=== PATIENT | male | born 1945 | race Two or more races ===

== ENCOUNTER 2017-05-13 09:05 | Inpatient (IN) | payer MEDICARE, BC, OTHER ==
[2017-05-13] MEDS: ASPIRIN 81 MG TAB PO (09:30)
[2017-05-13 09:59] LABS: ADD MAN DIFF? NO
[2017-05-13] MEDS ORDERED: ONDANSETRON 4 MG INJ ×2 (10:02→11:16)
[2017-05-13] MEDS: AMIODARONE 900 MG in DEXTROSE 5% 482 ML IV (10:09)
[2017-05-13] MEDS: HEPARIN 1000 UNITS/ML 10 ML INJ IV (10:09)
[2017-05-13 10:12] LABS: WHITE BLOOD COUNT 6.5 10^3/ul (4.8-10.8)
[2017-05-13 10:12] LABS: BASOPHILS % 0.5 % (0.0-2.0); EOSINOPHILS # 0.2 10^3/ul (0.0-0.5); EOSINOPHILS % 3.7 % (0.0-7.0); HEMATOCRIT 42.7 % (42.0-52.0); HEMOGLOBIN 14.4 g/dl (14.0-18.0); LYMPHOCYTES # 1.9 10^3/ul (0.8-2.9); LYMPHOCYTES % 29.8 % (15.0-51.0); MEAN CORPUSCULAR HEMOGLOBIN 29.4 pg (29.0-33.0); MEAN CORPUSCULAR HGB CONC 33.7 g/dl (32.0-37.0); MEAN CORPUSCULAR VOLUME 87.3 fl (82.0-101.0); MEAN PLATELET VOLUME 11.7 fl (7.4-10.4); MONOCYTE # 0.5 10^3/ul (0.3-0.9); MONOCYTES % 7.7 % (0.0-11.0); NEUTROPHIL # 3.7 10^3/ul (1.6-7.5); NEUTROPHILS % 57.8 % (39.0-77.0); PLATELET COUNT 203 10^3/UL (140-415); RED BLOOD COUNT 4.89 10^6/ul (4.70-6.10); RED CELL DISTRIBUTION WIDTH 13.4 % (11.5-14.5)
[2017-05-13 10:27] LABS: PROTIME 13.3 Sec (11.9-14.9)
[2017-05-13 10:32] LABS: CREATINE KINASE 212 IU/L (23-200)
[2017-05-13 10:42] LABS: ANION GAP 21 (8-16); BLOOD UREA NITROGEN 18 mg/dl (7-20); CALCIUM 9.4 mg/dl (8.4-10.2); CARBON DIOXIDE 19 mmol/L (21-31); CHLORIDE 105 mmol/L (97-110); CREATININE 1.05 mg/dl (0.61-1.24); GLUCOSE 165 mg/dl (70-220); POTASSIUM 3.3 mmol/L (3.5-5.1); SODIUM 142 mmol/L (135-144)
[2017-05-13 10:43] LABS: INR 1.08; PARTIAL THROMBOPLASTIN TIME 24.7 Sec (25.0-35.0); PROTIME 14.1 Sec (11.9-14.9); PT RATIO 1.1
[2017-05-13] MEDS ORDERED: HEPARIN 1000 UNITS/ML 10 ML INJ (10:43)
[2017-05-13] MEDS ORDERED: MIDAZOLAM 1 MG/ML 2 ML INJ (10:43)
[2017-05-13 10:44] LABS: CK INDEX 0.8; TROPONIN-I 0.042 ng/ml (0.00-0.12)
[2017-05-13] MEDS ORDERED: NITROGLYCERIN (IC) 100 MCG/ML INJ (10:47)
[2017-05-13 10:54] LABS: B-TYPE NATRIURETIC PEPTIDE 48 PG/ML (0-125); TROPONIN-I 0.045 ng/ml (0.00-0.12)
[2017-05-13 10:56] LABS: CK-MB 1.63 ng/ml (0.0-2.4)
[2017-05-13] MEDS ORDERED: BIVALIRUDIN 250MG /NS 50 ML 50 ML IVPB ×2 (10:58→11:24)
[2017-05-13] MEDS ORDERED: TICAGRELOR 90 MG TABLET (10:58)
[2017-05-13] MEDS ORDERED: IODIXANOL LOCM 100 ML BTL (11:13)
[2017-05-13] MEDS ORDERED: IOHEXOL 350MG/ML 50 ML BTL (11:13)
[2017-05-13] MEDS ORDERED: ONDANSETRON 4 MG INJ IV (12:00)
[2017-05-13] MEDS ORDERED: ACETAMINOPHEN 325 MG TAB PO ×2 (12:00→15:00)
[2017-05-13] MEDS: SOD CHLORIDE 0.9% 1,000 ML IV (12:48)
[2017-05-13] MEDS ORDERED: morphine 2 MG INJ IV (15:00)
[2017-05-13] MEDS ORDERED: DOCUSATE SODIUM 100 MG CAP PO (15:00)
[2017-05-13] MEDS ORDERED: ACETAMINOPHEN 650 MG SUPP PR (15:00)
[2017-05-13] MEDS ORDERED: MAGNESIUM HYDROXIDE 30ML CUP PO (15:00)
[2017-05-13] MEDS ORDERED: NACL 0.9% 3 ML SYG IV (15:00)
[2017-05-13] MEDS ORDERED: BISACODYL 10 MG SUPP PR (15:00)
[2017-05-13] MEDS ORDERED: HYDROCODONE/APAP (5/325) TAB PO ×2 (15:00)
[2017-05-13] MEDS: ONDANSETRON 4 MG INJ IV (19:23)
[2017-05-13] MEDS: TAMSULOSIN (SR) 0.4 MG CAP PO (20:57)
[2017-05-13] MEDS: ATORVASTATIN 80 MG TAB PO (20:57)
[2017-05-13] MEDS: TICAGRELOR 90 MG TABLET PO (20:58)
[2017-05-13 22:12] LABS: CREATINE KINASE 823 IU/L (23-200)
[2017-05-13 22:22] LABS: CK INDEX 4.1
[2017-05-14 05:19] LABS: HEMOGLOBIN A1C 5.7 % (0-5.9)
[2017-05-14 05:28] LABS: ALANINE AMINOTRANSFERASE 110 IU/L (13-69); ALBUMIN 3.8 g/dl (3.3-4.9); ALBUMIN/GLOBULIN RATIO 1.26; ALKALINE PHOSPHATASE 67 IU/L (42-121); ANION GAP 12 (8-16); ASPARTATE AMINO TRANSFERASE 112 IU/L (15-46); BILIRUBIN,INDIRECT 0.7 mg/dl (0-1.1); BILIRUBIN,TOTAL 0.7 mg/dl (0.2-1.3); BLOOD UREA NITROGEN 14 mg/dl (7-20); CALCIUM 9.3 mg/dl (8.4-10.2); CARBON DIOXIDE 26 mmol/L (21-31); CHLORIDE 109 mmol/L (97-110); CHOL/HDL RATIO 3.1 RATIO; CHOLESTEROL 126 mg/dl (100-200); CREATININE 0.94 mg/dl (0.61-1.24); GLUCOSE 111 mg/dl (70-220); HDL CHOLESTEROL 40 mg/dl (31-75); LDL CHOLESTEROL,CALCULATED 70 mg/dl; MAGNESIUM 2.2 mg/dl (1.7-2.5); PHOSPHORUS 2.9 mg/dl (2.5-4.9); POTASSIUM 4.1 mmol/L (3.5-5.1); SODIUM 143 mmol/L (135-144); TOTAL PROTEIN 6.8 g/dl (6.1-8.1); TRIGLYCERIDES 80 mg/dl (0-149)
[2017-05-14 05:43] LABS: FREE THYROXINE INDEX (Calc) 2.21 ug/ml (0.65-3.89); T3 UPTAKE 36.3 % (23.5-40.5); T4 (THYROXINE) 6.1 ug/dl (5.5-11.0)
[2017-05-14] MEDS: PANTOPRAZOLE 40 MG INJ IV (05:43)
[2017-05-14] MEDS: ASPIRIN 81 MG TAB PO (08:31)
[2017-05-14] MEDS: TICAGRELOR 90 MG TABLET PO ×2 (08:40→21:12)
[2017-05-14] MEDS ORDERED: ZOLPIDEM 5 MG TAB PO (10:00)
[2017-05-14] MEDS: LISINOPRIL 5 MG TAB PO (10:29)
[2017-05-14] MEDS ORDERED: LANSOPRAZOLE 30 MG CAP PO (11:00)
[2017-05-14] MEDS: ATORVASTATIN 80 MG TAB PO (20:16)
[2017-05-14] MEDS: TAMSULOSIN (SR) 0.4 MG CAP PO (20:16)
[2017-05-14] MEDS: PAROXETINE 20 MG TAB PO (20:16)
[2017-05-15] MEDS: PANTOPRAZOLE 40 MG INJ IV (05:31)
[2017-05-15 07:43] LABS: ADD MAN DIFF? NO
[2017-05-15 07:49] LABS: BASOPHILS % 0.3 % (0.0-2.0); EOSINOPHILS # 0.1 10^3/ul (0.0-0.5); EOSINOPHILS % 1.1 % (0.0-7.0); HEMATOCRIT 37.1 % (42.0-52.0); HEMOGLOBIN 12.5 g/dl (14.0-18.0); LYMPHOCYTES # 0.7 10^3/ul (0.8-2.9); LYMPHOCYTES % 11.3 % (15.0-51.0); MEAN CORPUSCULAR HEMOGLOBIN 29.2 pg (29.0-33.0); MEAN CORPUSCULAR HGB CONC 33.7 g/dl (32.0-37.0); MEAN CORPUSCULAR VOLUME 86.7 fl (82.0-101.0); MEAN PLATELET VOLUME 11.9 fl (7.4-10.4); MONOCYTE # 0.5 10^3/ul (0.3-0.9); MONOCYTES % 8.2 % (0.0-11.0); NEUTROPHIL # 5.1 10^3/ul (1.6-7.5); NEUTROPHILS % 78.8 % (39.0-77.0); PLATELET COUNT 151 10^3/UL (140-415); RED BLOOD COUNT 4.28 10^6/ul (4.70-6.10); RED CELL DISTRIBUTION WIDTH 13.9 % (11.5-14.5)
[2017-05-15 07:49] LABS: WHITE BLOOD COUNT 6.5 10^3/ul (4.8-10.8)
[2017-05-15 08:09] LABS: ALANINE AMINOTRANSFERASE 86 IU/L (13-69); ALBUMIN 3.6 g/dl (3.3-4.9); ALBUMIN/GLOBULIN RATIO 1.44; ALKALINE PHOSPHATASE 66 IU/L (42-121); ANION GAP 11 (8-16); ASPARTATE AMINO TRANSFERASE 77 IU/L (15-46); BILIRUBIN,INDIRECT 1.1 mg/dl (0-1.1); BILIRUBIN,TOTAL 1.1 mg/dl (0.2-1.3); BLOOD UREA NITROGEN 22 mg/dl (7-20); CALCIUM 8.6 mg/dl (8.4-10.2); CARBON DIOXIDE 24 mmol/L (21-31); CHLORIDE 110 mmol/L (97-110); CREATININE 0.97 mg/dl (0.61-1.24); GLUCOSE 95 mg/dl (70-220); POTASSIUM 3.8 mmol/L (3.5-5.1); SODIUM 141 mmol/L (135-144); TOTAL PROTEIN 6.1 g/dl (6.1-8.1)
[2017-05-15] MEDS: ASPIRIN 81 MG TAB PO (09:05)
[2017-05-15] MEDS: LISINOPRIL 5 MG TAB PO (09:10)
[2017-05-15] MEDS: TICAGRELOR 90 MG TABLET PO ×2 (09:16→16:36)
== END 2017-05-15 17:35 | disposition home or self-care (01) | DRG 246 ==
LOC: MS4 05-14 11:05 → ICU 05-14 11:05 → E/R 09:05 → CCL 10:28 → ICU 11:50 → MS4 05-14 11:05 → CCL 10:28 → ICU 11:50
PROC: 027034Z Dilation of Coronary Artery, One Artery with Drug-eluting Intraluminal Device, Percutaneous Approach (ICD-10-PCS; principal; 2017-05-13 10:30)
PROC: 4A023N7 Measurement of Cardiac Sampling and Pressure, Left Heart, Percutaneous Approach (ICD-10-PCS; 2017-05-13 10:30)
DX: I21.02 ST elevation (STEMI) myocardial infarction involving left anterior descending coronary artery (principal); I49.01 Ventricular fibrillation; I44.7 Left bundle-branch block, unspecified; I10 Essential (primary) hypertension; E87.6 Hypokalemia; Z82.49 Family history of ischemic heart disease and other diseases of the circulatory system; N40.0 Benign prostatic hyperplasia without lower urinary tract symptoms; I25.5 Ischemic cardiomyopathy
CPT/HCPCS: 36415; 71045; 80048; 80053; 80061; 82550; 82553; 83036; 83735; 83880; 84100; 84436; 84443; 84479; 84484; 85025; 85610; 85730; 87081; 93005; 93306; 93458; 96365; 96375; 97162; 99291-25